=== PATIENT | female | born 1980 | race Caucasian/White ===

== ENCOUNTER 2018-08-06 09:25 | Emergency (ER) | payer SELFPAY ==
[2018-08-06] MEDS ORDERED: 0.9 % SODIUM CHLORIDE 1,000 ML IV ONE (09:40)
[2018-08-06] MEDS ORDERED: 0.9 % SODIUM CHLORIDE 1,000 ML IV SCH (09:45)
[2018-08-06 09:47] LABS: BASOPHILS % 0.5 % (0.0-1.5); NEUTROPHILS # 9.2 # k/uL (1.4-7.7)
[2018-08-06 09:52] LABS: eGFR (Non-African) > 60
--- NOTE | 2018-08-06 10:36 | Diagnostic Imaging Report ---
RICHARD PATEL [facility] [address] [facility] [address] [place], [place]. [address] Report Submission Date: Aug 06, 2018 10:29:43 AM CDT Patient Study Name: RICKIE DAWSON Date: Aug 06, 2018 10:09:55 AM CDT Modality Type: CT\SR Gender: F Description: : 78 Institution: [facility] Physician: RICHARD PATEL HISTORY: 38-year-old female with abdominal pain, nausea, vomiting, diarrhea. COMPARISON: None available TECHNIQUE: Helical CT images of the abdomen and pelvis were performed with 88 ml Omnipaque 350 IV contrast. Sagittal and coronal reformatted images were obtained. FINDINGS: CT abdomen: There is scarring or atelectasis in the lingula. The liver is diffusely fatty infiltrated. There is decreased contrast enhancement involving the pancreatic head and pancreatic tail. There is fluid around the left adrenal gland. There is patchy decreased contrast enhancement of the superomedial aspect of the spleen. The kidneys, gallbladder, and right adrenal gland are unremarkable. No abdominal aortic aneurysm. CT pelvis: IUD is in place and appears appropriately positioned in the endometrial cavity. There is a right ovarian 3.3 cm cyst. No abnormal bowel dilatation, free air, or suspicious adenopathy. The appendix and urinary bladder are normal in appearance. There is advanced degenerative disc disease L4-L5. There is a lumbosacral transitional vertebrae. IMPRESSION: 1. Pancreatitis with areas of decreased contrast enhancement involving the pancreatic head and tail, suggestive of areas of pancreatic necrosis. There is less surrounding fat stranding than expected for acute pancreatitis, and this current appearance may be due to resolving pancreatitis. 2. Edema about the left adrenal gland suggestive of inflammation contiguous from the pancreas. 3. Diffuse fatty infiltration of the liver. 4. Patchy decreased attenuation in the spleen is nonspecific and may be seen with inflammation, infarct, or may be normal variation. 5. Right ovarian 3.3 cm cyst. 6. Advanced degenerative disc disease at L4-L5. Electronically signed on Aug 06, 2018 10:29:43 AM CDT by: Marc CH
--- NOTE | 2018-08-06 10:44 | ED Physician Documentation ---
General Adult - HISTORIAN Historian: patient - HPI Stated Complaint: Abdominal pain, N/V Chief Complaint: General Adult Onset: hours Timing: still present Severity: moderate Further Comments: yes (Pt is a 38 yo female with hx panceratitis who has had abd pain, n/v, for several hours. Pt has had recurrent episodes pancreatitis, perhaps 4 in the past year.) - ROS CONST: no problems EYES/ENT: none CVS/RESP: none GI/: abdominal pain, vomiting, nausea MS/SKIN/LYMPH: none - PAST HX Past History: hypertension, other (pancreatitis, HTN, hypoglycemia) Allergies/Adverse Reactions: Allergies Allergy/AdvReac Type Severity Reaction Status Date / Time morphine Allergy Verified 08/06/18 09:46 Home Medications: Ambulatory Orders Medication Instructions Recorded NK 08/06/18 - SOCIAL HX Smoking History: cigarettes - FAMILY HX Family History: No - VITAL SIGNS Vital Signs: Vital Signs Temp Pulse Resp BP Pulse Ox 98.2 F 105 H 20 114/83 99 08/06/18 09:25 08/06/18 09:25 08/06/18 09:25 08/06/18 09:25 08/06/18 09:25 - REVIEWED ASSESSMENTS Nursing Assessment Reviewed: Yes Vitals Reviewed: Yes Progress - Progress Progress: CT abd/pelvise w IV contrast: 1. Pancreatitis with areas of decreased contrast enhancement involving the pancreatic head and tail, suggestive of areas of pancreatic necrosis. There is less surrounding fat stranding than expected for acute pancreatitis, and this current appearance may be due to resolving pancreatitis. 2. Edema about the left adrenal gland suggestive of inflammation contiguous from the pancreas. 3. Diffuse fatty infiltration of the liver. 4. Patchy decreased attenuation in the spleen is nonspecific and may be seen with inflammation, infarct, or may be normal variation. 5. Right ovarian 3.3 cm cyst. 6. Advanced degenerative disc disease at L4-L5. Elevated [id number] Toradol 30 mg IV no improvement Zofran 4 mg IV Dilaudid 1 mg IV Transfer to . Hosp. Dr. Buck, panceratitis (?chronic); possible splenic infarct. ED Results Lab/Radiology - Lab Results Lab Results: Lab Results 08/06/18 08/06/18 08/06/18 09:35 09:35 09:35 WBC RBC Hgb Hct MCV MCH MCHC RDW Plt Count Neut % (Auto) Lymph % (Auto) Fann[place] % (Auto) Eos % (Auto) Baso % (Auto) Neut # (Auto) Lymph # (Auto) Fannin # (Auto) Eos # (Auto) Baso # (Auto) Sodium 137 mmol/L mmol/L (137-145) Potassium 3.1 mmol/L L mmol/L (3.5-5.1) Chloride 100 mmol/L mmol/L (98-107) Carbon Dioxide 25 mmol/L mmol/L (22-30) BUN 13 mg/dL mg/dL (7-17) Creatinine 0.51 mg/dL L mg/dL (0.52-1.04) Est GFR ( Amer) > 60 (60 - ) Est GFR (Non-Af Amer) > 60 (60 - ) Glucose 123 mg/dL H mg/dL (74-106) Calcium 9.2 mg/dL mg/dL (8.4-10.2) Total Bilirubin 0.7 mg/dL mg/dL (0.2-1.3) AST 84 U/L H U/L (15-46) ALT 16 U/L U/L (13-69) Alkaline Phosphatase 103 U/L U/L (38-126) Total Protein 7.1 g/dL g/dL (6.3-8.2) Albumin 4.0 g/dL g/dL (3.5-5.0) Lipase 273 U/L U/L (23-300) Serum HCG, Qual Negative (NEGATIVE) 08/06/18 09:35 WBC 11.20 K/ul K/ul (4.00-12.00) RBC 3.88 M/ul L M/ul (3.90-5.20) Hgb 12.7 g/dL g/dL (11.5-16.0) Hct 38.7 % % (34.5-46.5) MCV 100.0 fl fl (80.0-100.0) MCH 32.8 pg pg (28.0-34.0) MCHC 32.8 g/dL g/dL (30.0-36.0) RDW 17.7 % H % (11.3-14.3) Plt Count 276 K/mm3 K/mm3 (130-400) Neut % (Auto) 82.3 % H % (39.0-79.0) Lymph % (Auto) 9.5 % L % (16.0-50.0) Fannin % (Auto) 5.8 % % (0.0-11.0) Eos % (Auto) 1.9 % % (0.0-6.8) Baso % (Auto) 0.5 % % (0.0-1.5) Neut # (Auto) 9.2 # k/uL H # k/uL (1.4-7.7) Lymph # (Auto) 1.1 # k/uL # k/uL (0.6-4.0) Fannin # (Auto) 0.7 # k/uL # k/uL (0.0-0.9) Eos # (Auto) 0.2 # k/uL # k/uL (0.0-0.6) Baso # (Auto) 0.1 # k/uL # k/uL (0.0-0.5) Sodium Potassium Chloride Carbon Dioxide BUN Creatinine Est GFR ( Amer) Est GFR (Non-Af Amer) Glucose Calcium Total Bilirubin AST ALT Alkaline Phosphatase Total Protein Albumin Lipase Serum HCG, Qual - Orders Orders: ED Orders Category Date Time Status CT ABD & PELVIS W/ CON Stat Exams 08/06/18 Completed CBC/PLATELET/DIFF Routine Lab 08/06/18 09:35 Completed CMP Routine Lab 08/06/18 09:35 Completed LIPASE Stat Lab 08/06/18 09:35 Completed SERUM HCG Routine Lab 08/06/18 09:35 Completed URINALYSIS Routine Lab 08/06/18 Ordered 0.9 % Sodium Chloride [Normal Saline] 1,000 ml Med 08/06/18 09:45 Ordered IV Q10H General Adult Physical Exam - PHYSICAL EXAM GENERAL APPEARANCE: moderate distress EENT: eye inspection normal, ENT inspection normal, pharynx normal NECK: normal inspection, supple RESPIRATORY: no resp distress, chest non-tender, breath sounds normal CVS: reg rate & rhythm, heart sounds normal ABDOMEN: soft, tenderness (mid upper abd), other (distention) BACK: normal inspection, no CVA tenderness SKIN: warm/dry, normal color EXTREMITIES: non-tender, normal range of motion, no evidence of injury NEURO: oriented X3, motor nml, sensation nml Discharge Clincal Impression: abd pain, pancreatitis, ? chronic, possible splenic infarct Referrals: Primary Doctor,No [Primary Care Provider] - Condition: Stable Disposition: 02 XFER SHT-TRM HOSP Decision to Admit: NO Decision Time: 11:37
[2018-08-06] MEDS ORDERED: KETOROLAC TROMETHAMINE 30 MG/1ML VIAL IM ONE (10:48)
[2018-08-06 11:04] LABS: APPEARANCE,URINE CLOUDY (CLEAR); COLOR,URINE AMBER (YELLOW); OCCULT BLOOD,URINE NEGATIVE (NEGATIVE)
[2018-08-06] MEDS ORDERED: ONDANSETRON HCL/PF 4 MG/ 2ML VIAL IVP ONE (11:20)
[2018-08-06] MEDS ORDERED: HYDROmorphone HCL/PF 1 MG/ML VIAL IVP ONE (11:21)
[2018-08-06 12:24] VITALS: BP 102/68
== END 2018-08-06 12:14 | disposition short-term general hospital (02) ==
LOC: ED 09:25
DX: K85.90 Acute pancreatitis without necrosis or infection, unspecified (principal)
CPT/HCPCS: 74177; 80053; 81002; 83690; 84703; 85025; 85379; 96360; 96372; 99284; J1170; J1885; J2405; J7030; Q9967; S1016

== ENCOUNTER 2018-10-09 18:15 | Emergency (ER) | payer SELFPAY ==
[2018-10-09 18:37] VITALS: BP 105/68
--- NOTE | 2018-10-09 18:48 | ED Physician Documentation ---
Abdominal Pain - HISTORIAN Historian: patient - HPI Stated Complaint: abd pain Chief Complaint: Abdominal Pain Additonal Information: Patient is a 38-year-old female who presents to the ER via [facility] from [facility]. She was transferred to the [place] [facility] the end of July for splenic inflammation and pancreatitis. She states that they just monitored her and stated that abdominal pain would get better once inflammation went down. She was at [facility] and ate a big mac and large sanders with a soda; patient also smells of alcohol but denies. She was told by [facility] to monitor diet; no greasy, fried, or spicy foods; but she has not been following instructions Onset: minutes Duration: waxing, waning, sudden-onset Timing: still present Context: denies: out of country travel, bad food Severity: mild Quality: pain, cramping Associated Symptoms: none Exacerbated by: nothing Relieved by: nothing - ROS CONST: recent illness GI/: none CVS/RESP: none EYES/ENT: none MS/SKIN/LYMPH: none NEURO/PSYCH: none - SOCIAL HX Smoking History: less than 1 pack/day Alcohol Use: heavy Drug Use: none - FAMILY HX Family History: none - PAST HX Past History: pancreatitis Ischemic Bowel Risk Factors: none Other History: none Surgeries/Procedures: none Immunizations: UTD Home Medications: Ambulatory Orders Medication Instructions Recorded Lipase/Protease/Amylase [Pancreaze 10/09/18 4,200 Unit Cap] Allergies/Adverse Reactions: Allergies Allergy/AdvReac Type Severity Reaction Status Date / Time morphine Allergy Verified 10/09/18 18:30 - VITAL SIGNS Vital Signs: Vital Signs Temp Pulse Resp BP Pulse Ox 98.1 F 116 H 24 105/68 98 10/09/18 18:15 10/09/18 18:15 10/09/18 18:15 10/09/18 18:15 10/09/18 18:15 - REVIEWED ASSESSMENTS Nursing Assessment Reviewed: Yes Vitals Reviewed: Yes Progress - Progress Progress: 19:10 Discussed lab results with patient; she continues to deny alcohol use; explained that she was not in trouble- she was a grown woman and could do what she wanted; I was just trying to figure out what was causing her abdominal pain. She states that she had 3 glasses of wine 3 days ago; I explained that her alcohol would not still be this elevated. She continues to deny current alcohol use; explained that we would admit her , hydrate her, and treat her discomfort- she agrees with admission. 19:20 Was in another room and patient took off; told the nurse that her ride was going to be here in 2 minutes and she had to go. ED Results Lab/Radiology - Lab Results Lab Results: Lab Results 10/09/18 10/09/18 18:35 18:35 WBC 17.80 K/ul H K/ul (4.00-12.00) RBC 3.41 M/ul L M/ul (3.90-5.20) Hgb 10.1 g/dL L g/dL (11.5-16.0) Hct 31.3 % L % (34.5-46.5) MCV 92.0 fl fl (80.0-100.0) MCH 29.5 pg pg (28.0-34.0) MCHC 32.1 g/dL g/dL (30.0-36.0) RDW 15.1 % H % (11.3-14.3) Plt Count 410 K/mm3 H K/mm3 (130-400) Sodium 142 mmol/L mmol/L (137-145) Potassium 3.5 mmol/L mmol/L (3.5-5.1) Chloride 108 mmol/L H mmol/L (98-107) Carbon Dioxide 13 mmol/L L mmol/L (22-30) Anion Gap 24.5 BUN 9 mg/dL mg/dL (7-17) Creatinine 0.45 mg/dL L mg/dL (0.52-1.04) Estimated Creat Clear 176 Est GFR ( Amer) > 60 (60 - ) Est GFR (Non-Af Amer) > 60 (60 - ) Glucose 133 mg/dL H mg/dL (74-106) Calcium 8.4 mg/dL mg/dL (8.4-10.2) Total Bilirubin 0.3 mg/dL mg/dL (0.2-1.3) AST 44 U/L U/L (15-46) ALT < 6 U/L L U/L (13-69) Alkaline Phosphatase 85 U/L U/L (38-126) Total Protein 7.1 g/dL g/dL (6.3-8.2) Albumin 3.8 g/dL g/dL (3.5-5.0) Amylase 189 U/L H U/L (30-110) Lipase 575 U/L H U/L (23-300) Ethyl Alcohol 245.2 mg/dL H mg/dL (0.0-10.0) - Orders Orders: ED Orders Category Date Time Status Place IV Lock 1T Care 10/09/18 19:20 Ordered ALCOHOL MEDICAL USE ONLY Stat Lab 10/09/18 18:35 Completed AMYLASE Routine Lab 10/09/18 18:35 Completed CBC/PLATELET/DIFF Routine Lab 10/09/18 18:35 Completed CMP Routine Lab 10/09/18 18:35 Completed LIPASE Stat Lab 10/09/18 18:35 Completed Famotidine/Pf [Pepcid] Med 10/09/18 19:20 Once 20 mg IV NOW ONE Thiamine HCl [Vitamin B-1] 100 mg Med 10/09/18 19:20 Ordered Multivit Infusn,Adult 1,Vit K [M.v.i. Adult] 10 ml Folic Acid [Folvite] 5 mg 0.9 % Sodium Chloride [Normal Saline] 1,000 ml IV ONCE Abdominal Pain Physical Exam - Physical Exam General Appearance: alert, mild distress EENT: eye inspection normal, ENT inspection normal, pharynx normal, no signs of dehydration, GIRMA NECK: normal inspection, supple RESPIRATORY: breath sounds normal CVS: heart sounds normal ABDOMEN: normal bowel sounds, no distension, non-tender (No tenderness noted on "deep auscultation") BACK: normal inspection SKIN: warm/dry, normal color EXTREMITIES: non-tender, normal range of motion NEURO: oriented X3, CN's nml as tested, motor nml, sensation nml, mood/affect nml, cognition normal Vital Signs: Vital Signs Temp Pulse Resp BP Pulse Ox 98.1 F 116 H 24 105/68 98 10/09/18 18:15 10/09/18 18:15 10/09/18 18:15 10/09/18 18:15 10/09/18 18:15 Discharge Clincal Impression: Pancreatitis, Alcohol abuse Referrals: Primary Doctor,No [Primary Care Provider] - 2 Days Disposition: 07 AGAINST MEDICAL ADVICE Decision to Admit: NO Decision Time: 19:40
[2018-10-09 18:55] LABS: eGFR (Non-African) > 60
[2018-10-09] MEDS ORDERED: FAMOTIDINE 20 MG/2 ML VIAL IV ONE (19:20)
[2018-10-09] MEDS ORDERED: THIAMINE HCL 100 MG, MULTIVIT INFUSN,ADULT 1,VIT K 10 ML, FOLIC ACID 5 MG in 0.9 % SODI... IV ONE (19:20)
[2018-10-10 07:06] LABS: BASOPHILS % 0.9 % (0.0-1.5); NEUTROPHILS # 10.9 # k/uL (1.4-7.7)
== END 2018-10-09 19:24 | disposition left against medical advice (07) ==
LOC: ED 18:15
DX: K85.90 Acute pancreatitis without necrosis or infection, unspecified (principal); F10.10 Alcohol abuse, uncomplicated
CPT/HCPCS: 80053; 80320; 82150; 83690; 85025; 96360; 96374; 99282; 99283; G0480